=== PATIENT | male | born 1930 | race African-American/Black ===

== ENCOUNTER 2016-08-10 14:15 | Observation (INO) | payer OTHER ==
--- NOTE | 2016-08-10 14:54 | DR.GENAD ---
HPI - PCP Primary Care Physician: ernesto RUTLEDGE Comment HPI Comment: Patient reports pain in his belly since yesterday evening. Patient reports that it has gotten worse today. Patient denies nausea vomiting/diarrhea - Complaint/Symptoms Chief Complaint Doctors Comments: Abdominal pain Chief Complaint:: patient stated that his stomach has been hurting him for a while now but it started hurting really bad today - Nurses notes reviewed Nurses Notes Review: Yes - Source History Provided: Patient - Mode of Arrival Mode of Arrival: Ambulatory - Timing Onset of Chief Complaint: 08/10/16 PMH - PMH Past Medical History: No Past Surgical History: No - Family History History of Family Medical Conditions: No - Social History Type of Tobacco Use: Cigarettes Does any household member use tobacco: No Alcohol Use: None Do you use any recreational Drugs:: No Lives With: Family Lives Where: Home - infectious screening In the last 2 months have you had wt loss of >10#?: NO Have you had fever, night sweats or hemotysis?: No Have you traveled outside the country in the last 6 months?: No Isolation: Standard ROS - Review of Systems Constitutional: No Symptoms Reported Eyes: No Symptoms Reported ENTM: No Symptoms Reported Respiratoy: No Symptoms Reported Cardiovascular: No Symptoms Reported Gastrointestinal/Abdominal: Abdominal Pain Genitourinary: No Symptoms Reported Neurological: No Symptoms Reported Musculoskeletal: No Symptoms Reported Integumentary: No Symptoms Reported Hematologic/Lymphatic: No Symptoms Reported Endocrine: No Symptoms Reported Psychiatric: No Symptoms Reported All Other Systems: Reviewed and Negative PE - Vital Signs Vitals: Pulse Rate 98 Respiratory Rate 20 Blood Pressure 183/92 O2 Sat by Pulse Oximetry 97 - General Limitations: No Limitations General Appearance: Alert, In No Apparent Distress - Head Head Exam: Normal Inspection - Eyes Eye exam: Normal Appearance - ENT ENT Exam: Normal Exam External Ear Exam: Normal External Inspection TM/Canal Exam: Bilateral Normal Nose Exam: Normal Nose Exam Mouth Exam: Normal Inspection Throat Exam: Normal Inspection - Neck Neck Exam: Normal Inspection - Chest Chest Inspection: Normal Inspection - Respiratory Respiratory Exam: Normal Lung Sounds Bilat Respiratory Exam: Bilateral Clear to Auscultation - Cardiovascular Cardiovascular Exam: Regular Rate, Normal Rhythm - Abdominal Exam Abdominal Exam: Normal Inspection, Normal Bowel Sounds, Soft, Tenderness Abdominal Tenderness: Epigastrium - Extremities Extremities Exam: Normal Inspection - Back Back Exam: Normal Inspection - Neurologic Neurological Exam: Alert, Oriented X3 - Psychiatric Psychiatric Exam: Normal Affect, Normal Mood - Skin Skin Exam: Warm, Dry, Intact, Normal Color Course - Reevaluation 1st: Improved - Consultation Consultation Comments: Consulted with Dr Campa- patient accepted for admission ROR - Labs Reviewed Laboratory Results Reviewed?: Yes Result Diagrams: 08/10/16 15:10 08/10/16 15:10 Laboratory: WBC 7.4 X10^3/uL (3.6-10.0) 08/10/16 15:10 RBC 4.07 X10^6/uL (4.7-6.0) L 08/10/16 15:10 Hgb 11.7 g/dL (13.5-18.0) L 08/10/16 15:10 Hct 36.5 % (42.0-54.0) L 08/10/16 15:10 MCV 89.7 fL (80.0-100.0) 08/10/16 15:10 MCH 28.7 pg (27.0-34.0) 08/10/16 15:10 MCHC 32.0 g/dL (33.0-35.0) L 08/10/16 15:10 RDW 14.8 % (11.6-16.5) 08/10/16 15:10 Plt Count 126 X10^3/uL (150.0-450.0) L 08/10/16 15:10 MPV 9.8 fL (7.4-11.0) 08/10/16 15:10 Neut % 86.9 % (42.0-75.0) H 08/10/16 15:10 Lymph % 9.5 % (21.0-51.0) L 08/10/16 15:10 [place] % 3.3 % (0.0-13.0) 08/10/16 15:10 Eos % 0.0 % (0.9-2.9) L 08/10/16 15:10 Baso % 0.3 % (0.2-1.0) 08/10/16 15:10 Neut # 6.4 x10^3/uL (2.2-4.8) H 08/10/16 15:10 Lymph # 0.7 X10^3/uL (1.3-2.9) L 08/10/16 15:10 [place] # 0.2 x10^3/uL (0.3-0.8) L 08/10/16 15:10 Eos # 0.0 x10^3/uL (0.0-0.2) 08/10/16 15:10 Baso # 0.0 X10^3/uL (0.0-0.1) 08/10/16 15:10 Absolute Nucleated RBC 0.0 /100WBC 08/10/16 15:10 Sodium 141 mmol/L (136-145) 08/10/16 15:10 Corrected Sodium 143 mmol/L (136-145) 08/10/16 15:10 Potassium 4.8 mmol/L (3.5-5.1) 08/10/16 15:10 Chloride 107 mmol/L (98-107) 08/10/16 15:10 Carbon Dioxide 21.5 mmol/L (21-32) 08/10/16 15:10 BUN 37 mg/dL (7-18) H 08/10/16 15:10 Creatinine 2.90 mg/dL (0.70-1.30) H 08/10/16 15:10 Est GFR (MDRD) Af Amer 27 (>60) L 08/10/16 15:10 Est GFR (MDRD) Non-Af 22 (>60) L 08/10/16 15:10 Glucose 180 mg/dL (65-99) H 08/10/16 15:10 Calcium 8.2 mg/dL (8.5-10.1) L 08/10/16 15:10 Corrected Calcium 8.8 mg/dL (8.5-10.1) 08/10/16 15:10 Total Bilirubin 1.20 mg/dL (0.2-1.0) H 08/10/16 15:10 AST 18 Units/L (15-37) 08/10/16 15:10 ALT 17 Units/L (12-78) 08/10/16 15:10 Alkaline Phosphatase 94 Units/L (46-116) 08/10/16 15:10 Creatine Kinase 252 Units/L (39-308) 08/10/16 15:10 CK-MB (CK-2) 1.0 ng/mL (0-4.0) 08/10/16 15:10 CK/CKMB % Calc 0.4 % (<4) 08/10/16 15:10 Troponin I 0.02 ng/mL (0-1.5) 08/10/16 15:10 Total Protein 7.2 g/dL (6.4-8.2) 08/10/16 15:10 Albumin 3.2 g/dL (3.4-5.0) L 08/10/16 15:10 Globulin 4.0 g/dL (2.5-4.5) 08/10/16 15:10 Albumin/Globulin Ratio 0.8 Ratio (1.1-2.1) L 08/10/16 15:10 Specimen Type Clean catch urine 08/10/16 18:41 Urine Color Yellow (YELLOW) 08/10/16 18:41 Urine Appearance Clear (CLEAR) 08/10/16 18:41 Urine pH 5.0 (5.0 - 8.0) 08/10/16 18:41 Ur Specific [place] 1.015 (1.000-1.030) 08/10/16 18:41 Urine Protein 4+ (NEGATIVE) 08/10/16 18:41 Urine Glucose (UA) Negative (NEGATIVE) 08/10/16 18:41 Urine Ketones Negative (NEGATIVE) 08/10/16 18:41 Urine Occult Blood 4+ (NEGATIVE) 08/10/16 18:41 Urine Nitrite Negative (NEGATIVE) 08/10/16 18:41 Urine Bilirubin Negative (NEGATIVE) 08/10/16 18:41 Urine Urobilinogen Normal (NORMAL) 08/10/16 18:41 Ur Leukocyte Esterase Negative (NEGATIVE) 08/10/16 18:41 Urine RBC 0 - 4 /HPF (NEGATIVE) 08/10/16 18:41 Urine WBC Rare /HPF (NEGATIVE) 08/10/16 18:41 Ur Squamous Epith Cells Rare /HPF (NEGATIVE) 08/10/16 18:41 Amorphous Sediment 2+ /HPF (NEGATIVE) 08/10/16 18:41 Urine Bacteria Negative /HPF (NEGATIVE) 08/10/16 18:41 Urine Mucus Moderate /HPF (NEGATIVE) 08/10/16 18:41 Ur Culture Indicated? No/not indicated 08/10/16 18:41 H. pylori IgG Antibody Positive (NEGATIVE) A 08/10/16 15:10 reviewed - XRAY XRAY Interpreted by: Radiologist XRAY Findings: normal - Diagnosis Discharge Problem: Abdominal pain in male, Epigastric pain, Helicobacter pylori (H. pylori), Helicobacter pylori duodenitis, Dehydration - Discharge Plan Condition: Stable Prescriptions: Amoxicillin-Clarithromycin W/ [Omeclamox-Jeffrey 500-500-20 mg] 1 mis PO BID 14 Days - Follow ups/Referrals Follow ups/Referrals: NFD,None [Primary Care Provider] - 3 days - Instructions
[2016-08-10] MEDS ORDERED: PROTONIX INJ 40 MG VIAL IVP ONE (15:02)
[2016-08-10] MEDS ORDERED: PROTONIX INJ 40 MG VIAL ONE (15:28)
[2016-08-10 15:32] LABS: BASOPHILS % (AUTO) 0.3 % (0.2-1.0); HEMATOCRIT 36.5 % (42.0-54.0); HEMOGLOBIN 11.7 g/dL (13.5-18.0); LYMPHOCYTES # (AUTO) 0.7 X10^3/uL (1.3-2.9); LYMPHOCYTES % (AUTO) 9.5 % (21.0-51.0); MEAN CORPUSCULAR HEMOGLOBIN 28.7 pg (27.0-34.0); MEAN CORPUSCULAR VOLUME 89.7 fL (80.0-100.0); MEAN PLATELET VOLUME 9.8 fL (7.4-11.0); MONOCYTES # (AUTO) 0.2 x10^3/uL (0.3-0.8); MONOCYTES % (AUTO) 3.3 % (0.0-13.0); NEUTROPHILS # (AUTO) 6.4 x10^3/uL (2.2-4.8); NEUTROPHILS % (AUTO) 86.9 % (42.0-75.0); PLATELET COUNT 126 X10^3/uL (150.0-450.0); RED BLOOD COUNT 4.07 X10^6/uL (4.7-6.0); RED CELL DISTRIBUTION WIDTH 14.8 % (11.6-16.5); WHITE BLOOD COUNT 7.4 X10^3/uL (3.6-10.0)
[2016-08-10 15:37] LABS: ALBUMIN 3.2 g/dL (3.4-5.0); CALCIUM 8.2 mg/dL (8.5-10.1); CARBON DIOXIDE 21.5 mmol/L (21-32); COR CA(FOR HYPOALB) 8.8 mg/dL (8.5-10.1); CREATININE 2.9 mg/dL (0.70-1.30); TOTAL PROTEIN 7.2 g/dL (6.4-8.2)
[2016-08-10] MEDS ORDERED: NS 1000 ML 1,000 ML IV ONE (17:03)
[2016-08-10] MEDS ORDERED: NS 1000 ML 1,000 ML ONE (17:06)
[2016-08-10] MEDS ORDERED: FLAGYL IV PREMIX 500 MG BAG 500 MG/100 ML BAG IV ONE ×2 (18:21→19:04)
--- NOTE | 2016-08-10 18:53 | RAD ---
HISTORY: Abdominal pain, vomiting, diarrhea Study: Acute abdominal series Comparison: None Findings: The trachea is midline. The cardiac silhouette is unremarkable. The lungs are clear without focal mass or consolidation. There is no effusion or pneumothorax. The bony thorax is grossly unremarkab le. Flat plate and upright evaluation of the abdomen demonstrates a nonspecific bowel gas pattern withou t pneumoperitoneum. There are scattered air-fluid levels within the small bowel and colon without s ignificant distention to suggest obstruction. Findings could be seen with gastroenteritis or itis or mild generalized ileus. No pathological soft tissue mass or calcification can be observed. 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 The bony structu res are grossly intact. IMPRESSION: 1. No acute cardiopulmonary disease. 2. Nonspecific bowel gas pattern. Reported By:
[2016-08-10 18:59] LABS: CKMB % 0.4 % (<4); TROPONIN I 0.02 ng/mL (0-1.5)
[2016-08-10] MEDS ORDERED: NS 1000 ML 1,000 ML IV SCH (19:00)
[2016-08-10 19:05] LABS: BILIRUBIN,URINE NEGATIVE (NEGATIVE); BLOOD/HEMOGLOBIN,URINE 4+ (NEGATIVE); GLUCOSE, URINE NEGATIVE (NEGATIVE); KETONES,URINE NEGATIVE (NEGATIVE); LEUKOCYTE ESTERASE ,URINE NEGATIVE (NEGATIVE); NITRITES,URINE NEGATIVE (NEGATIVE); PROTEIN,URINE 4+ (NEGATIVE); UROBILINOGEN,URINE NORMAL (NORMAL)
[2016-08-10 19:12] LABS: COLOR,URINE YELLOW (YELLOW)
[2016-08-10 19:30] LABS: APPEARANCE,URINE CLEAR (CLEAR); BACTERIA,URINE NEGATIVE /HPF (NEGATIVE); RBC,URINE 0 - 4 /HPF (NEGATIVE); SQUAMOUS EPITHELIAL CELL,UR RARE /HPF (NEGATIVE)
[2016-08-10 19:31] LABS: AMORPHOUS SEDIMENT,UR 2+ /HPF (NEGATIVE); MUCUS,URINE MODERATE /HPF (NEGATIVE)
[2016-08-10] MEDS: NS 1000 ML 1,000 ML IV SCH (21:23)
[2016-08-11] MEDS: NS 1000 ML 1,000 ML IV SCH ×6 (03:14→22:10)
[2016-08-11 06:29] LABS: BASOPHILS % (AUTO) 0.2 % (0.2-1.0); HEMATOCRIT 32.7 % (42.0-54.0); HEMOGLOBIN 10.7 g/dL (13.5-18.0); LYMPHOCYTES # (AUTO) 0.6 X10^3/uL (1.3-2.9); LYMPHOCYTES % (AUTO) 4.7 % (21.0-51.0); MEAN CORPUSCULAR HGB CONC 32.8 g/dL (33.0-35.0); MEAN CORPUSCULAR VOLUME 88.5 fL (80.0-100.0); MEAN PLATELET VOLUME 9.9 fL (7.4-11.0); MONOCYTES # (AUTO) 0.6 x10^3/uL (0.3-0.8); MONOCYTES % (AUTO) 4.7 % (0.0-13.0); NEUTROPHILS # (AUTO) 11.3 x10^3/uL (2.2-4.8); NEUTROPHILS % (AUTO) 90.4 % (42.0-75.0); PLATELET COUNT 115 X10^3/uL (150.0-450.0); RED CELL DISTRIBUTION WIDTH 14.7 % (11.6-16.5); WHITE BLOOD COUNT 12.6 X10^3/uL (3.6-10.0)
[2016-08-11 06:41] LABS: ALBUMIN 2.5 g/dL (3.4-5.0); CALCIUM 8.1 mg/dL (8.5-10.1); CARBON DIOXIDE 18.3 mmol/L (21-32); COR CA(FOR HYPOALB) 9.3 mg/dL (8.5-10.1); CREATININE 2.73 mg/dL (0.70-1.30); TOTAL PROTEIN 6.2 g/dL (6.4-8.2)
[2016-08-11 07:23] LABS: BAND NEUTROPHILS % 2 % (0-10)
[2016-08-11 07:24] LABS: PLATELET MORPHOLOGY COMMENT NORMAL (NORMAL)
[2016-08-11] MEDS: PEPCID 20 MG IV PREMIX* 20 MG/50 ML BAG IV SCH (09:31)
[2016-08-11] MEDS: PROTONIX INJ 40 MG VIAL IVP SCH (09:31)
[2016-08-11] MEDS: NORVASC TAB 5 MG PO SCH (11:29)
[2016-08-11] MEDS: PROSCAR PO SCH (11:29)
[2016-08-11] MEDS: HYTRIN PO SCH (11:30)
[2016-08-11] MEDS ORDERED: MORPHINE SULFATE INJ 2 MG IVP PRN (13:26)
[2016-08-11 14:20] LABS: CKMB % 0.7 % (<4); CREATINE KINASE MB 1.7 ng/mL (0-4.0); TROPONIN I 0.06 ng/mL (0-1.5)
--- NOTE | 2016-08-11 15:54 | DR.H&P ---
H&P - History & Physical for Day of: H&P Date: 08/10/16 - Chief Complaint Chief Complaint: ABDOMINAL PAIN - Allergies Allergies/Adverse Reactions: Allergies Allergy/AdvReac Type Severity Reaction Status Date / Time No Known Drug Allergy Allergy Verified 08/10/16 22:00 - History of Present Illness History of Present Illness: THIS IS AN 85 YEAR OLD MALE, WHO IS A PATIENT OF OURS. HE PRESENTS TO THE EMERGENCY ROOM WITH COMPLAINTS OF ABDOMINAL PAIN SINCE LAST EVENING. PATIENT REPORTS WORSENING PAIN. HE DENIES VOMITING OR DIARRHEA. HE REPORTS PAIN IS LOACTED IN THE EPIGASTRIC AREA, AND RATES PAIN AN 8 ON A 1-TO-10 PAIN SCALE. PATIENT REPORTS ASSOCIATED SYMPTOMS OF DECREASED APPETITE AND DECREASED INTAKE, WEAKNESS, AND DISORIENTATION. LABS AND XRAY OBTAINED. CBC WNL EXCEPT: H/H 11.7/36.5, PLT COUNT 126. CMP WNL EXCEPT: BUN/ CREAT 37/2.90, GFR 22, GLUCOSE 180, CALCIUM 8.2, ALBUMIN 3.2. CARDIAC ENZYMES WNL. URINALYSIS WNL. H-PYLORI POSITIVE. ABDOMEN XRAY REPORTS NO ACUTE CARDIOPULMONARY DISEASE; NONSPECIFIC BOWEL GAS PATTERN. EKG: SINUS TACH; RBBB, RATE 109. PATIENT RECEIVED A FLUID BOLUS, FLAGYL, AND PROTONIX IN THE EMERGENCY ROOM. WE WILL ADMIT PATIENT FOR FURTHER TREATMENT OF DEHYDRATION AND ABD PAIN. WE WILL CONTINUE TO MONITOR AND FOLLOW UP IN AM WITH LABS. - Past Medical History Past Medical History: Hypertension Additional Medical History: BPH - Past Surgical History Surgical History: Other Additional Surgical History: Stent due to prostate - Family History Family Medical History: Hypertension - Social History Does patient currently use any type of tobacco product: Yes Have you used tobacco products in the last 12 months: Yes Type of Tobacco Use: Smokeless Does any household member use tobacco: No Alcohol Use: None Drug Use: None - Medications Home Medications: Finasteride [Proscar] 5 mg PO DAILY 08/10/16 [History Confirmed 08/10/16] Terazosin HCl [Hytrin] 5 mg PO DAILY 08/10/16 [History Confirmed 08/10/16] Amlodipine Besylate [NORVASC 5 MG *] 1 tab PO DAILY 08/11/16 [History Confirmed 08/11/16] - Review of Systems Constitutional: Weakness, Malaise Eyes: No Symptoms Reported. denies: Pain, Vision Change, Conjunctivae Inflammation, Eyelid Inflammation, Redness ENT: No Symptoms Reported. denies: Ear Pain, Ear Discharge, Nose Pain, Nose Discharge, Nose Congestion, Mouth Pain, Mouth Swelling, Throat Pain, Throat Swelling Respiratory: No Symptoms Reported. denies: Cough, Shortness of Breath, Hemoptysis, SOB with Excertion, Pleuritic Pain, Sputum, Wheezing Cardiovascular: No Symptoms Reported. denies: Chest Pain, Palpitations, Orthopnea, Paroxysmal Noc. Dyspnea, Edema, Light Headedness Gastrointestinal: Abdominal Pain. denies: Nausea, Vomiting, Diarrhea, Constipation, Melena, Hematochezia Genitourinary: No Symptoms Reported. denies: Dysuria, Frequency, Incontinence, Hematuria, Retention Musculoskeletal: No Symptoms Reported. denies: Shoulder Pain, Arm Pain, Back Pain, Hand Pain, Leg Pain, Foot Pain, Neck Pain Skin: No Symptoms Reported. denies: Rash, Lesions, Jaundice, Bruising, Wound, Ecchymosis Neurological: Confusion. denies: Weakness, Numbness, Incoordination, Change in Speech - Physical Exam Vital Signs: Temperature 98.5 F Pulse Rate [Left Brachial] 82 Respiratory Rate 20 Blood Pressure [Left Arm] 140/89 O2 Sat by Pulse Oximetry 96 Oriented: Person, Place Eyes: Normal. negative: Blurred Vision, Diplopia, Discharge, Pain, Redness, Photophobia Ear: Normal. negative: Swelling, Ecchymosis, Hemotypanum, Abrasion, Laceration Nose: Normal. negative: Injected, Discharge, Blood Throat: Dry. negative: Tonsillar Hypertrophy, Red, Exudate Respiratory: Clear Throughout Cardiovascular: Normal. negative: Murmur, Edema : Normal. negative: Dysuria, Hematuria, Frequency, Discharge, Testicular Pain Auscultation: Bowel Sounds: Decreased. negative: Bruit Palpation: Normal. negative: Spleen Enlarged, Liver Enlarged, Mass Pulsatile Tenderness: Diffuse, Epigastric. negative: Rebound, Guarding, Rigidity Skin: Decreased [place]. negative: Diaphoresis, Wound, Bruising, Ecchymosis Musculoskeletal: Normal Psychiatric: Normal Mood Description: Calm, Appropriate Affect: Normal Speech Pattern: Clear, Appropriate - Assessment/Plan (1) Abdominal pain in male Status: Acute Plan: ADMIT PATIENT, START IV FLUIDS, PROTONIX, MOPRHINE, MONITOR. (2) Dehydration Status: Acute Plan: START IV FLUIDS, MONITOR LABS. (3) Epigastric pain Status: Acute Plan: ABOVE. (4) Helicobacter pylori (H. pylori) Status: Acute Plan: START PROTONIX, MORPHINE, MONITOR. (5) BPH (benign prostatic hypertrophy) Qualifiers: Prostatic enlargement morphology: non-nodular Lower urinary tract symptom presence: symptoms absent Qualified Code(s): N40.0 - Benign prostatic hyperplasia without lower urinary tract symptoms Status: Chronic (6) HTN (hypertension) Qualifiers: Hypertension type: essential hypertension Qualified Code(s): I10 - Essential (primary) hypertension Status: Chronic
--- NOTE | 2016-08-11 16:08 | PCM.PROG ---
Progress Note - Progress Note for Day of Date: 08/11/16 - Subjective Subjective: PATIENT IS REPORTING CHEST PAIN THIS MORNING. PATIENT IS ALERT AND ORIENTED. HE REPORTS MIDSTERNAL CHEST PAIN AND RATES IT AN 8 ON A 1-TO-10 PAIN SCALE. HE STATES THAT PAIN IS INTERMITTENT AND IS SEVERE AT TIMES. PATIENT CONTINUES WITH ABDOMINAL PAIN. CBC WNL EXCEPT: WBC 12.6, H/H 10.7/32.7, PLT COUNT 115. CMP WNL EXCEPT: CHL 111, BUN/CREAT 43/2.73, GFR 29, GLUCOSE 135, CALCIUM 8.1, TOT BILIRUBIN 1.40, TOT PROTEIN 6.2, ALBUMIN 2.5. WE WILL OBTAIN SERIAL EKG'S AND CARDIAC ENZYMES AND MONITOR ON TELEMETRY. WE WILL START PEPCID IV AND FOLLOW UP IN AM WITH LABS. - Past Medical Family Social History Past Med/Fam/Surg Hx: No changes since H&P Allergies: Allergies No Known Drug Allergy Allergy (Verified 08/10/16 22:00) - Review of Systems ROS: No change since H&P - Vital Signs and I&O's Vital Signs: Temperature 98.5 F Pulse Rate [Left Brachial] 82 Respiratory Rate 20 Blood Pressure [Left Arm] 140/89 O2 Sat by Pulse Oximetry 96 Intake and Output: Intake & Output 08/09/16 08/10/16 08/11/16 08/12/16 11:59 11:59 11:59 11:59 Intake Total 1380 Output Total 250 Balance 1130 - Physical Exam Oriented: Normal, Time, Person, Place Eyes: Normal. negative: Blurred Vision, Diplopia, Discharge, Pain, Redness, Photophobia Ear: Normal. negative: Swelling, Ecchymosis, Hemotypanum, Abrasion, Laceration Nose: Normal. negative: Injected, Discharge, Blood Throat: Dry. negative: Tonsillar Hypertrophy, Red, Exudate Respiratory: Normal Cardiovascular: Normal. negative: Murmur, Edema : Normal. negative: Dysuria, Hematuria, Frequency, Discharge, Testicular Pain Auscultation: Bowel Sounds: Decreased. negative: Bruit Palpation: Normal. negative: Spleen Enlarged, Liver Enlarged, Mass Pulsatile Tenderness: Diffuse, Epigastric, Moderate. negative: Rebound, Guarding, Rigidity Skin: Decreased [place]urg[place]. negative: Diaphoresis, Wound, Bruising, Ecchymosis Musculoskeletal: Normal Psychiatric: Normal Mood Description: Calm, Appropriate Affect: Normal Speech Pattern: Clear, Appropriate - Laboratory and Diagnostics Result Diagrams: 08/11/16 06:05 08/11/16 06:05 Labs: Laboratory WBC 12.6 X10^3/uL (3.6-10.0) H 08/11/16 06:05 RBC 3.70 X10^6/uL (4.7-6.0) L 08/11/16 06:05 Hgb 10.7 g/dL (13.5-18.0) L 08/11/16 06:05 Hct 32.7 % (42.0-54.0) L 08/11/16 06:05 MCV 88.5 fL (80.0-100.0) 08/11/16 06:05 MCH 29.0 pg (27.0-34.0) 08/11/16 06:05 MCHC 32.8 g/dL (33.0-35.0) L 08/11/16 06:05 RDW 14.7 % (11.6-16.5) 08/11/16 06:05 Plt Count 115 X10^3/uL (150.0-450.0) L 08/11/16 06:05 Plt Count Comment Adequate (ADEQUATE) 08/11/16 06:05 MPV 9.9 fL (7.4-11.0) 08/11/16 06:05 Neut % 90.4 % (42.0-75.0) H 08/11/16 06:05 Lymph % 4.7 % (21.0-51.0) L 08/11/16 06:05 [place] % 4.7 % (0.0-13.0) 08/11/16 06:05 Eos % 0.0 % (0.9-2.9) L 08/11/16 06:05 Baso % 0.2 % (0.2-1.0) 08/11/16 06:05 Neut # 11.3 x10^3/uL (2.2-4.8) H 08/11/16 06:05 Lymph # 0.6 X10^3/uL (1.3-2.9) L 08/11/16 06:05 [place] # 0.6 x10^3/uL (0.3-0.8) 08/11/16 06:05 Eos # 0.0 x10^3/uL (0.0-0.2) 08/11/16 06:05 Baso # 0.0 X10^3/uL (0.0-0.1) 08/11/16 06:05 Absolute Nucleated RBC 0.0 /100WBC 08/11/16 06:05 Total Counted 100 08/11/16 06:05 Neutrophils % (Manual) 88 % (39-76) H 08/11/16 06:05 Band Neutrophils % 2 % (0-10) 08/11/16 06:05 Lymphocytes % (Manual) 4 % (13-43) L 08/11/16 06:05 Monocytes % (Manual) 7 % (4-9) 08/11/16 06:05 Eosinophils % (Manual) 1 % (0-6) 08/11/16 06:05 Plt Morphology Comment Normal (NORMAL) 08/11/16 06:05 RBC Morphology Normal (NORMAL) 08/11/16 06:05 Sodium 142 mmol/L (136-145) 08/11/16 06:05 Corrected Sodium 143 mmol/L (136-145) 08/11/16 06:05 Potassium 4.9 mmol/L (3.5-5.1) 08/11/16 06:05 Chloride 111 mmol/L (98-107) H 08/11/16 06:05 Carbon Dioxide 18.3 mmol/L (21-32) L 08/11/16 06:05 BUN 43 mg/dL (7-18) H 08/11/16 06:05 Creatinine 2.73 mg/dL (0.70-1.30) H 08/11/16 06:05 Est GFR (MDRD) Af Amer 29 (>60) L 08/11/16 06:05 Est GFR (MDRD) Non-Af 24 (>60) L 08/11/16 06:05 Glucose 135 mg/dL (65-99) H 08/11/16 06:05 Calcium 8.1 mg/dL (8.5-10.1) L 08/11/16 06:05 Corrected Calcium 9.3 mg/dL (8.5-10.1) 08/11/16 06:05 Total Bilirubin 1.40 mg/dL (0.2-1.0) H 08/11/16 06:05 AST 12 Units/L (15-37) L 08/11/16 06:05 ALT 12 Units/L (12-78) 08/11/16 06:05 Alkaline Phosphatase 72 Units/L (46-116) 08/11/16 06:05 Creatine Kinase 258 Units/L (39-308) 08/11/16 13:45 CK-MB (CK-2) 1.7 ng/mL (0-4.0) 08/11/16 13:45 CK/CKMB % Calc 0.7 % (<4) 08/11/16 13:45 Troponin I 0.06 ng/mL (0-1.5) 08/11/16 13:45 Total Protein 6.2 g/dL (6.4-8.2) L 08/11/16 06:05 Albumin 2.5 g/dL (3.4-5.0) L 08/11/16 06:05 Globulin 3.7 g/dL (2.5-4.5) 08/11/16 06:05 Albumin/Globulin Ratio 0.7 Ratio (1.1-2.1) L 08/11/16 06:05 Specimen Type Clean catch urine 08/10/16 18:41 Urine Color Yellow (YELLOW) 08/10/16 18:41 Urine Appearance Clear (CLEAR) 08/10/16 18:41 Urine pH 5.0 (5.0 - 8.0) 08/10/16 18:41 Ur Specific [place] 1.015 (1.000-1.030) 08/10/16 18:41 Urine Protein 4+ (NEGATIVE) 08/10/16 18:41 Urine Glucose (UA) Negative (NEGATIVE) 08/10/16 18:41 Urine Ketones Negative (NEGATIVE) 08/10/16 18:41 Urine Occult Blood 4+ (NEGATIVE) 08/10/16 18:41 Urine Nitrite Negative (NEGATIVE) 08/10/16 18:41 Urine Bilirubin Negative (NEGATIVE) 08/10/16 18:41 Urine Urobilinogen Normal (NORMAL) 08/10/16 18:41 Ur Leukocyte Esterase Negative (NEGATIVE) 08/10/16 18:41 Urine RBC 0 - 4 /HPF (NEGATIVE) 08/10/16 18:41 Urine WBC Rare /HPF (NEGATIVE) 08/10/16 18:41 Ur Squamous Epith Cells Rare /HPF (NEGATIVE) 08/10/16 18:41 Amorphous Sediment 2+ /HPF (NEGATIVE) 08/10/16 18:41 Urine Bacteria Negative /HPF (NEGATIVE) 08/10/16 18:41 Urine Mucus Moderate /HPF (NEGATIVE) 08/10/16 18:41 Ur Culture Indicated? No/not indicated 08/10/16 18:41 H. pylori IgG Antibody Positive (NEGATIVE) A 08/10/16 15:10 - Plan (1) Abdominal pain in male Status: Acute Plan: CONTINUE IV FLUIDS, PROTONIX, MOPRHINE, MONITOR. (2) Dehydration Status: Acute Plan: CONTINUE IV FLUIDS, MONITOR LABS. (3) Epigastric pain Status: Acute Plan: ABOVE. (4) Helicobacter pylori (H. pylori) Status: Acute Plan: CONTINUE PROTONIX, MORPHINE, MONITOR. (5) BPH (benign prostatic hypertrophy) Status: Chronic Qualifiers: Prostatic enlargement morphology: non-nodular Lower urinary tract symptom presence: symptoms absent Qualified Code(s): N40.0 - Benign prostatic hyperplasia without lower urinary tract symptoms (6) HTN (hypertension) Status: Chronic Qualifiers: Hypertension type: essential hypertension Qualified Code(s): I10 - Essential (primary) hypertension
[2016-08-11 18:09] LABS: CKMB % 0.9 % (<4); CREATINE KINASE MB 2.4 ng/mL (0-4.0); TROPONIN I 0.07 ng/mL (0-1.5)
[2016-08-11 20:13] VITALS: BMI 22.1
[2016-08-11 21:48] LABS: CKMB % 0.8 % (<4); CREATINE KINASE MB 2.6 ng/mL (0-4.0); TROPONIN I 0.07 ng/mL (0-1.5)
[2016-08-12] MEDS: NS 1000 ML 1,000 ML IV SCH ×2 (02:20→05:09)
[2016-08-12 06:15] LABS: BASOPHILS % (AUTO) 0.2 % (0.2-1.0); HEMATOCRIT 31.7 % (42.0-54.0); HEMOGLOBIN 10.5 g/dL (13.5-18.0); LYMPHOCYTES # (AUTO) 0.5 X10^3/uL (1.3-2.9); LYMPHOCYTES % (AUTO) 4.6 % (21.0-51.0); MEAN CORPUSCULAR HEMOGLOBIN 29.1 pg (27.0-34.0); MEAN CORPUSCULAR VOLUME 88.1 fL (80.0-100.0); MEAN PLATELET VOLUME 10.3 fL (7.4-11.0); MONOCYTES # (AUTO) 0.6 x10^3/uL (0.3-0.8); MONOCYTES % (AUTO) 6.2 % (0.0-13.0); NEUTROPHILS # (AUTO) 9.3 x10^3/uL (2.2-4.8); PLATELET COUNT 114 X10^3/uL (150.0-450.0); RED CELL DISTRIBUTION WIDTH 14.7 % (11.6-16.5); WHITE BLOOD COUNT 10.4 X10^3/uL (3.6-10.0)
--- NOTE | 2016-08-12 06:26 | RAD ---
HISTORY: Dehydration Study: Chest one view Comparison: August 10, 2016 Findings: Positioning is less than optimal with the left costophrenic angle not included on the image. The hea rt is enlarged. No congestive heart failure is noted. No acute alveolar infiltrates are identified. No definite pleural effusions are identified. The bony thorax is unremarkable. IMPRESSION: Cardiomegaly without congestive heart failure Lungs clear Reported By:
[2016-08-12 06:31] LABS: ALBUMIN 2.3 g/dL (3.4-5.0); COR CA(FOR HYPOALB) 9.4 mg/dL (8.5-10.1); CREATININE 2.69 mg/dL (0.70-1.30); TOTAL PROTEIN 5.9 g/dL (6.4-8.2)
[2016-08-12] MEDS: PEPCID 20 MG IV PREMIX* 20 MG/50 ML BAG IV SCH (08:09)
[2016-08-12] MEDS: NORVASC TAB 5 MG PO SCH (08:10)
[2016-08-12] MEDS: PROTONIX INJ 40 MG VIAL IVP SCH (08:10)
[2016-08-12] MEDS: HYTRIN PO SCH (08:11)
[2016-08-12] MEDS: PROSCAR PO SCH (08:11)
[2016-08-12 08:40] VITALS: BP 162/83
[2016-08-12] MEDS ORDERED: ALBUMIN HUMAN 25%- 100ML 100 ML IV SCH (09:00)
--- NOTE | 2016-08-12 10:30 | DR.CARTERD ---
- Discharge Summary for: Discharge Summary for Date of:: 08/12/16 - Admission Date Date of Admission: 08/10/16 - Admission Diagnoses Admission Diagnosis: (1) Abdominal pain in male (2) Dehydration (3) Epigastric pain (4) Helicobacter pylori (H. pylori) (5) BPH (benign prostatic hypertrophy) (6) HTN (hypertension) - Discharge Date Discharge Date: 08/12/16 - Discharge Diagnoses Discharge Diagnosis: (1) Chest Pain (2)Abdominal pain in male (3) Dehydration (4) Epigastric pain (5) Helicobacter pylori (H. pylori) (6) BPH (benign prostatic hypertrophy) (7) HTN (hypertension) - Hospital Course Hospital Course: DAY ONE OF HOSPITAL STAY, THIS 85 YEAR OLD MALE, IS A PATIENT OF OURS. HE PRESENTED TO THE EMERGENCY ROOM WITH COMPLAINTS OF ABDOMINAL PAIN SINCE ONE DAY PRIOR. PATIENT REPORTED WORSENING PAIN. HE DENIED VOMITING OR DIARRHEA. HE REPORTED PAIN WAS LOACTED IN THE EPIGASTRIC AREA, AND RATED PAIN AN 8 ON A 1-TO- 10 PAIN SCALE. PATIENT REPORTED ASSOCIATED SYMPTOMS OF DECREASED APPETITE AND DECREASED INTAKE, WEAKNESS, AND DISORIENTATION. LABS AND XRAY OBTAINED. CBC WNL EXCEPT: H/H 11.7/36.5, PLT COUNT 126. CMP WNL EXCEPT: BUN/CREAT 37/2.90, GFR 22, GLUCOSE 180, CALCIUM 8.2, ALBUMIN 3.2. CARDIAC ENZYMES WNL. URINALYSIS WNL. H-PYLORI POSITIVE. ABDOMEN XRAY REPORTED NO ACUTE CARDIOPULMONARY DISEASE; NONSPECIFIC BOWEL GAS PATTERN. EKG: SINUS TACH; RBBB, RATE 109. PATIENT RECEIVED A FLUID BOLUS, FLAGYL, AND PROTONIX IN THE EMERGENCY ROOM. WE ADMITTED PATIENT FOR FURTHER TREATMENT OF DEHYDRATION AND ABD PAIN. DAY TWO OF HOSPITAL STAY, PATIENT REPORTED CHEST PAIN. PATIENT WAS ALERT AND ORIENTED. HE REPORTED MIDSTERNAL CHEST PAIN AND RATED IT AN 8 ON A 1-TO-10 PAIN SCALE. HE STATED THAT PAIN WAS INTERMITTENT AND WAS SEVERE AT TIMES. PATIENT CONTINUED WITH ABDOMINAL PAIN. CBC WNL EXCEPT: WBC 12.6, H/H 10.7/32.7 , PLT COUNT 115. CMP WNL EXCEPT: CHL 111, BUN/CREAT 43/2.73, GFR 29, GLUCOSE 135, CALCIUM 8.1, TOT BILIRUBIN 1.40, TOT PROTEIN 6.2, ALBUMIN 2.5. WE OBTAINED SERIAL EKG'S AND CARDIAC ENZYMES AND MONITORED ON TELEMETRY. WE STARTED PEPCID IV AND MONITORED. DAY THREE OF HOSPITAL STAY, PATIENT REPORTED HE WAS FEELING MUCH BETTER WITH NO CHEST PAIN. HE DENIED NAUSEA, VOMITING, ABDOMINAL PAIN. CARDIAC ENZYMES WNL WELL EKG'S. CBC WNL EXCEPT: WBC 10.4, H/H 10.5/31.7, PLT COUNT 114. CMP WNL EXCEPT: CHL 112, BUN/CREAT47/2.69, GFR 29, GLUCOSE 119, CALCIUM 8.0, TOT PROTEIN 5.9, ALBUMIN 2.3. WE PLANNED FOR DISCHARGE. PATIENT RECEIVED ALBUMIN PRIOR TO DISCHARGE. INSTRUCTIONS FOR MEDICATIONS AND FOLLOW UP WERE GIVEN TO PATIENT AND FAMILY, BOTH VOICED UNDERSTANDING. PATIENT IS BEING DISCHARGED HOME ON PEPCID, PROTONIX, AND GI COCKTAIL FOR H-PYLORI INFECTION. PATIENT WAS DISCHARGED HOME IN STABLE CONDITION WITH FAMILY. - Discharge Medications Discharge Medications: Finasteride [PROSCAR 5 MG *] 5 mg PO DAILY 08/10/16 [History] Terazosin HCl [HYTRIN 5 MG (GENERIC) *] 5 mg PO DAILY 08/10/16 [History] Amlodipine Besylate [NORVASC 5 MG *] 1 tab PO DAILY 08/11/16 [History] Famotidine [Pepcid Tab 20 mg] 20 mg PO BID #60 tab 08/12/16 [Rx] Gi Cocktail [LEVSIN/Maalox/Lidoc Visc (GI COCKTAIL) *] 10 ml PO QID #240 ml [Rx] Pantoprazole Sodium 40 mg [Protonix Tab 40 mg] 40 mg PO BID #60 tab 08/12/16 [Rx ] - Discharge Disposition Discharge Disposition: PATIENT IS TO FOLLOW UP IN OUR OFFICE IN ONE WEEK.
== END 2016-08-12 11:10 | disposition home or self-care (01) ==
LOC: ER 14:15 → OBS 20:12
PROVIDERS: ADMIT Internal Medicine; ATTEND Internal Medicine
DX: R10.84 Generalized abdominal pain (principal); E86.0 Dehydration; R10.13 Epigastric pain; B96.81 Helicobacter pylori [H. pylori] as the cause of diseases classified elsewhere; K29.80 Duodenitis without bleeding; R94.31 Abnormal electrocardiogram [ECG] [EKG]; R63.0 Anorexia; R53.1 Weakness; I10 Essential (primary) hypertension; N40.0 Benign prostatic hyperplasia without lower urinary tract symptoms; R07.2 Precordial pain; D64.89 Other specified anemias; R26.89 Other abnormalities of gait and mobility; R41.0 Disorientation, unspecified; Z79.899 Other long term (current) drug therapy
CPT/HCPCS: 36415; 71010; 74022; 80053; 81001; 82550; 82553; 84484; 85025; 86677; 93005; 93010; 94760; 96365; 96367; 96374; 96375; 97535; 99284; A4222; C9113; G8978; G8979; G8987; G8988; P9047; S0028; S0030; S0138; G0378

== ENCOUNTER 2016-09-02 16:24 | Observation (INO) | payer OTHER ==
--- NOTE | 2016-09-02 16:38 | DR.DIZZY ---
HPI - Time seen Time seen: 16:30 - PCP Primary Care Physician: ISIAH - HPI Comment HPI Comment: PATIENT GOT WORSE TODAY. HE WAS ATAXIC AND DIZZY. SLIGHT HEADACHE. NO FEVER. FEQUENT FALLING AND HITTING HEAD. PATIENT SAID HIS HEAD DONT FEEL RIGHT. - Complaint Chief Complaint Doctor Comments: GENERALIZE WEAKNESS, CONFUSION, ATAXIA AND FREQUENT FALL TIMES FEW DAYS. Chief Complaint:: PT. C/O UNSTEADY GAIT AND DIZZINESS. UPON ARRIVAL TO ER, PT. HAS AMS. - Nurses Notes Reviewed Nurses Notes Review: Yes - Source History Provided: Patient, EMS - Mode of Arrival Mode of Arrival: EMS - Timing Onset of Chief Complaint: 08/19/16 Came on: Gradually Symptom Onset: Unknown - Duration Duration: Constant Duration: Days - Location of Weakness Weakness Location: Generalized - Context Onset: With light exertion Does pt take pot. toxic medication?: No History of: None Stroke Symptoms: Ataxia, Acute confusion - Severity Severity: Abnormal activity level - Associated signs and symptoms Associated Signs and Symptoms: Vertigo, Weak PMH - PMH Past Medical History: Yes Past Medical History: Hypertension Past Medical History Comment: PROSTATE CANCER Past Surgical History: Yes Surgical History: Other - Family History History of Family Medical Conditions: Yes Family Medical History: Hypertension - Social History Does patient currently use any type of tobacco product: No Have you used tobacco products in the last 12 months: No Type of Tobacco Use: None Does any household member use tobacco: No Alcohol Use: None Do you use any recreational Drugs:: No Lives With: Family Lives Where: Home - infectious screening In the last 2 months have you had wt loss of >10#?: NO Have you had fever, night sweats or hemotysis?: No Have you traveled outside the country in the last 6 months?: No Isolation: Standard ROS - Review of Systems Constitutional: Weakness, Fatigue. negative: Chills, Fever Eyes: No Symptoms Reported. negative: Eye Pain, Discharge ENTM: Hearing Loss (DECREASE HEARING). negative: Ear Pain, Nose Discharge, Nose Congestion, Throat Pain Respiratoy: Non-Productive Cough. negative: Short of Breath, Wheezing, Hemoptysis Cardiovascular: negative: Chest Pain, Edema, Palpitations, Syncope Gastrointestinal/Abdominal: negative: Abdominal Pain, Diarrhea, Nausea, Vomiting Genitourinary: negative: Dysuria, Hematuria Neurological: Headache, Weakness, Dizziness Musculoskeletal: Muscle Pain Integumentary: No Symptoms Reported Hematologic/Lymphatic: Easy Bruising Endocrine: No Symptoms Reported All Other Systems: Reviewed and Negative Unable to Obtain Due To: Altered mental status PE - Vital Signs Vitals: Temperature 100 F Pulse Rate 81 Respiratory Rate 16 Blood Pressure [Left Arm] 162/83 Blood Pressure 126/61 O2 Sat by Pulse Oximetry 97 - General Limitations: No Limitations General Appearance: Alert - Head Head Exam: Normal Inspection - Eyes Eye exam: Normal Appearance Pupils: Regular, Round: Bilateral, Reactive: Bilateral Sclera/Conjunctival: Normal Inspection: Bilateral - ENT ENT Exam: Normal Oropharynx, Normal External Ear Exam, TM's Normal Bilaterally - Neck Neck Exam: Trachea Midline. negative: Tenderness, Meningismus, Lymphadenopathy - Chest Chest Inspection: Symmetric Chest Wall Rise - Respiratory Respiratory Exam: Normal Lung Sounds Bilat Respiratory Exam: Bilateral Clear to Auscultation - Cardiovascular Cardiovascular Exam: Regular Rate, Normal Rhythm, Normal Heart Sounds - Abdominal Exam Abdominal Exam: Normal Bowel Sounds, Soft. negative: Tenderness - Rectal Rectal Exam: Deferred - Extremeties Extremities Exam: Normal Inspection - Back Back Exam: Normal Inspection - Neurologic Neurological Exam: Alert. negative: Normal Gait (ATAXIA) Speech: Fluid Speech Cranial Nerve Exam: Facial Sensation (V): Normal, Facial Palsy (VII): Normal, Gag reflex (XI): Normal, Tongue Deviation: Normal Cerebellar Function: Ataxic Gait Motor Strength - LUE: 5/5 Motor Strength - RUE: 5/5 Motor Strength - LLE: 5/5 Motor Strength - RLE: 5/5 Upper Motor Neuron Exam: Babinski Sign: Normal - Psychiatric Psychiatric Exam: Anxious - Skin Skin Exam: Normal Color MDM - Additional Information Additional Information Obtained From: Family - Differential Diagnosis Differential Diagnosis: CVA, Dehydration, Dysrhythmia, Electrolyte disorder, Hypoglycemia, Labyrinthitis, TIA, VBI, Vertigo- central Course - Treatment Treatment: SEE ORDERS - Consultation Consultation Comments: DISCUSS PATIENT WITH DR. STRAUSS. HE WILL ADMIT PATIENT. - Education/Counseling Education/Counseling: Patient, Family, Education Educated On: Diagnosis, Needs for Follow Up ROR - Labs Reviewed Laboratory Results Reviewed?: Yes Result Diagrams: 09/03/16 05:41 09/03/16 05:41 Laboratory: WBC 4.4 X10^3/uL (3.6-10.0) 09/03/16 05:41 RBC 3.31 X10^6/uL (4.7-6.0) L 09/03/16 05:41 Hgb 9.4 g/dL (13.5-18.0) L 09/03/16 05:41 Hct 28.3 % (42.0-54.0) L 09/03/16 05:41 MCV 85.7 fL (80.0-100.0) 09/03/16 05:41 MCH 28.5 pg (27.0-34.0) 09/03/16 05:41 MCHC 33.3 g/dL (33.0-35.0) 09/03/16 05:41 RDW 15.1 % (11.6-16.5) 09/03/16 05:41 Plt Count 165 X10^3/uL (150.0-450.0) 09/03/16 05:41 MPV 8.3 fL (7.4-11.0) 09/03/16 05:41 Neut % 65.4 % (42.0-75.0) 09/03/16 05:41 Lymph % 20.0 % (21.0-51.0) L 09/03/16 05:41 [place] % 9.1 % (0.0-13.0) 09/03/16 05:41 Eos % 2.7 % (0.9-2.9) 09/03/16 05:41 Baso % 2.8 % (0.2-1.0) H 09/03/16 05:41 Neut # 2.9 x10^3/uL (2.2-4.8) 09/03/16 05:41 Lymph # 0.9 X10^3/uL (1.3-2.9) L 09/03/16 05:41 [place] # 0.4 x10^3/uL (0.3-0.8) 09/03/16 05:41 Eos # 0.1 x10^3/uL (0.0-0.2) 09/03/16 05:41 Baso # 0.1 X10^3/uL (0.0-0.1) 09/03/16 05:41 Absolute Nucleated RBC 0.0 /100WBC 09/03/16 05:41 Sodium 139 mmol/L (136-145) 09/03/16 05:41 Corrected Sodium TNP 09/03/16 05:41 Potassium 5.0 mmol/L (3.5-5.1) 09/03/16 05:41 Chloride 108 mmol/L (98-107) H 09/03/16 05:41 Carbon Dioxide 21.3 mmol/L (21-32) 09/03/16 05:41 BUN 33 mg/dL (7-18) H 09/03/16 05:41 Creatinine 2.95 mg/dL (0.70-1.30) H 09/03/16 05:41 Est GFR (MDRD) Af Amer 26 (>60) L 09/03/16 05:41 Est GFR (MDRD) Non-Af 22 (>60) L 09/03/16 05:41 Glucose 88 mg/dL (65-99) 09/03/16 05:41 Calcium 7.5 mg/dL (8.5-10.1) L 09/03/16 05:41 Corrected Calcium 9.0 mg/dL (8.5-10.1) 09/03/16 05:41 Total Bilirubin 0.50 mg/dL (0.2-1.0) 09/03/16 05:41 AST 20 Units/L (15-37) 09/03/16 05:41 ALT 14 Units/L (12-78) 09/03/16 05:41 Alkaline Phosphatase 65 Units/L (46-116) 09/03/16 05:41 Creatine Kinase 329 Units/L (39-308) H 09/03/16 05:41 CK-MB (CK-2) 7.3 ng/mL (0-4.0) H* 09/03/16 05:41 CK/CKMB % Calc 2.2 % (<4) 09/03/16 05:41 Troponin I 0.02 ng/mL (0-1.5) 09/03/16 05:41 Total Protein 5.8 g/dL (6.4-8.2) L 09/03/16 05:41 Albumin 2.1 g/dL (3.4-5.0) L 09/03/16 05:41 Globulin 3.7 g/dL (2.5-4.5) 09/03/16 05:41 Albumin/Globulin Ratio 0.6 Ratio (1.1-2.1) L 09/03/16 05:41 Triglycerides 69 mg/dL (0-150) 09/03/16 05:41 Cholesterol 120 mg/dL (0-200) 09/03/16 05:41 LDL Cholesterol, Calc 71 mg/dL (0-100) 09/03/16 05:41 HDL Cholesterol 35 mg/dL (40-60) L 09/03/16 05:41 Cholesterol/HDL Ratio 3.4 (0.0-5.0) 09/03/16 05:41 Specimen Type Clean catch urine 09/02/16 17:21 Urine Color Yellow (YELLOW) 09/02/16 17:21 Urine Appearance Slightly hazy (CLEAR) 09/02/16 17:21 Urine pH 5.0 (5.0 - 8.0) 09/02/16 17:21 Ur Specific [place] 1.015 (1.000-1.030) 09/02/16 17:21 Urine Protein 3+ (NEGATIVE) 09/02/16 17:21 Urine Glucose (UA) Negative (NEGATIVE) 09/02/16 17:21 Urine Ketones Negative (NEGATIVE) 09/02/16 17:21 Urine Occult Blood 3+ (NEGATIVE) 09/02/16 17:21 Urine Nitrite Negative (NEGATIVE) 09/02/16 17:21 Urine Bilirubin Negative (NEGATIVE) 09/02/16 17:21 Urine Urobilinogen Normal (NORMAL) 09/02/16 17:21 Ur Leukocyte Esterase 1+ (NEGATIVE) 09/02/16 17:21 Urine RBC 3-5 /HPF (NEGATIVE) 09/02/16 17:21 Urine WBC 0-3 /HPF (NEGATIVE) 09/02/16 17:21 Ur Squamous Epith Cells Few /HPF (NEGATIVE) 09/02/16 17:21 Ur Renal Epithelial Cell Few /HPF (NEGATIVE) 09/02/16 17:21 Amorphous Sediment Trace /HPF (NEGATIVE) 09/02/16 17:21 Urine Bacteria Trace /HPF (NEGATIVE) 09/02/16 17:21 Granular Casts Few /LPF (NEGATIVE) 09/02/16 17:21 Ur Culture Indicated? No/not indicated 09/02/16 17:21 - XRAY XRAY Interpreted by: Radiologist XRAY Findings: REPORT DISCUSS WITH PATIENT AND FAMILY. - EKG Rhythm: NSR (EKG NOTED.) - Diagnosis Discharge Problem: Weakness generalized, Ataxia, Dehydration, Frequent falls Altered mental status Qualifiers: Altered mental status type: transient alteration of awareness Qualified Code(s) : R40.4 - Transient alteration of awareness - Discharge Plan Disposition: ADMITTED INPATIENT Condition: Stable - Follow ups/Referrals - Instructions
[2016-09-02 17:08] LABS: BASOPHILS % (AUTO) 0.8 % (0.2-1.0); EOSINOPHILS # (AUTO) 0.1 x10^3/uL (0.0-0.2); EOSINOPHILS % (AUTO) 1.8 % (0.9-2.9); HEMATOCRIT 30.3 % (42.0-54.0); LYMPHOCYTES # (AUTO) 0.8 X10^3/uL (1.3-2.9); LYMPHOCYTES % (AUTO) 16.7 % (21.0-51.0); MEAN CORPUSCULAR HEMOGLOBIN 28.4 pg (27.0-34.0); MEAN CORPUSCULAR HGB CONC 32.9 g/dL (33.0-35.0); MEAN CORPUSCULAR VOLUME 86.3 fL (80.0-100.0); MEAN PLATELET VOLUME 8.4 fL (7.4-11.0); MONOCYTES # (AUTO) 0.4 x10^3/uL (0.3-0.8); MONOCYTES % (AUTO) 9.4 % (0.0-13.0); NEUTROPHILS # (AUTO) 3.3 x10^3/uL (2.2-4.8); NEUTROPHILS % (AUTO) 71.3 % (42.0-75.0); PLATELET COUNT 190 X10^3/uL (150.0-450.0); RED BLOOD COUNT 3.51 X10^6/uL (4.7-6.0); RED CELL DISTRIBUTION WIDTH 15.3 % (11.6-16.5); WHITE BLOOD COUNT 4.6 X10^3/uL (3.6-10.0)
[2016-09-02 17:17] LABS: BLOOD UREA NITROGEN 33 mg/dL (7-18); CALCIUM 7.6 mg/dL (8.5-10.1); CARBON DIOXIDE 22.3 mmol/L (21-32); CHLORIDE 108 mmol/L (98-107); CREATININE 3.26 mg/dL (0.70-1.30); GLUCOSE 79 mg/dL (65-99); SODIUM 138 mmol/L (136-145); TROPONIN I 0.03 ng/mL (0-1.5); eGFR BLACK RACES 23 (>60); eGFR NON BLACK RACES 19 (>60)
--- NOTE | 2016-09-02 17:26 | CT ---
HISTORY: Altered mental status Study: CT brain without contrast Comparison: None Technique: Multiple axial images of the brain were obtained from the skull base to the vertex without administr ation of IV contrast. Coronal and sagittal reformats were performed. Dose reduction procedures were used with MA/kv adjusted for body size. Findings: No acute intraparenchymal hemorrhage or mass can be identified. No extra-axial fluid collections ar e seen. No alteration in the attenuation of the brain parenchyma can be identified to suggest acute or subacute ischemic change. the ventricles, cortical sulci, and other CSF spaces are mildly enlar ged consistent with generalized atrophy. There is decreased attenuation in the periventricular white matter suggestive of small vessel vascular disease. The extracranial structures are grossly unrema rkable. IMPRESSION: 1. No acute intracranial process can be identified. 2. Age-related atrophy 3. Small-vessel disease Reported By:
[2016-09-02 17:40] LABS: ALANINE AMINOTRANSFERASE 14 Units/L (12-78); ALBUMIN 2.4 g/dL (3.4-5.0); ALKALINE PHOSPHATASE 70 Units/L (46-116); ASPARTATE AMINO TRANSFERASE 20 Units/L (15-37); CKMB % 1.9 % (<4); COR CA(FOR HYPOALB) 8.9 mg/dL (8.5-10.1); CREATINE KINASE 351 Units/L (39-308); TOTAL PROTEIN 6.5 g/dL (6.4-8.2)
[2016-09-02 17:41] LABS: CREATINE KINASE MB 6.7 ng/mL (0-4.0)
[2016-09-02 17:44] LABS: BILIRUBIN,URINE NEGATIVE (NEGATIVE); BLOOD/HEMOGLOBIN,URINE 3+ (NEGATIVE); GLUCOSE, URINE NEGATIVE (NEGATIVE); KETONES,URINE NEGATIVE (NEGATIVE); LEUKOCYTE ESTERASE ,URINE 1+ (NEGATIVE); NITRITES,URINE NEGATIVE (NEGATIVE); PROTEIN,URINE 3+ (NEGATIVE); UROBILINOGEN,URINE NORMAL (NORMAL)
[2016-09-02 18:03] LABS: COLOR,URINE YELLOW (YELLOW)
[2016-09-02 18:04] LABS: AMORPHOUS SEDIMENT,UR TRACE /HPF (NEGATIVE); APPEARANCE,URINE SLIGHTLY HAZY (CLEAR); BACTERIA,URINE TRACE /HPF (NEGATIVE); SQUAMOUS EPITHELIAL CELL,UR FEW /HPF (NEGATIVE)
[2016-09-02 18:05] LABS: GRANULAR CASTS,URINE FEW /LPF (NEGATIVE); RENAL EPITHELIAL CELLS,URINE FEW /HPF (NEGATIVE)
--- NOTE | 2016-09-02 18:33 | RAD ---
HISTORY: Cough Study: AP chest Comparison: August 12, 2016 Findings: The trachea is midline. The cardiac silhouette is unremarkable. The lungs are clear without focal infiltrate or effusion. The bony thorax is unremarkable. IMPRESSION: 1. No acute cardiopulmonary disease. Reported By:
[2016-09-02] MEDS ORDERED: HYTRIN PO SCH (21:00)
[2016-09-02] MEDS: PROTONIX TAB 40 MG PO SCH (22:12)
[2016-09-02] MEDS: PEPCID TAB 20 MG PO SCH (22:12)
[2016-09-02] MEDS: NS 1000 ML 1,000 ML IV SCH (22:12)
[2016-09-02 22:42] VITALS: BMI 19.2
[2016-09-02 23:58] LABS: CKMB % 2.1 % (<4); TROPONIN I 0.02 ng/mL (0-1.5)
[2016-09-03 00:01] LABS: CREATINE KINASE MB 7.5 ng/mL (0-4.0)
[2016-09-03 06:48] LABS: BASOPHILS # (AUTO) 0.1 X10^3/uL (0.0-0.1); BASOPHILS % (AUTO) 2.8 % (0.2-1.0); EOSINOPHILS # (AUTO) 0.1 x10^3/uL (0.0-0.2); EOSINOPHILS % (AUTO) 2.7 % (0.9-2.9); HEMATOCRIT 28.3 % (42.0-54.0); HEMOGLOBIN 9.4 g/dL (13.5-18.0); LYMPHOCYTES # (AUTO) 0.9 X10^3/uL (1.3-2.9); MEAN CORPUSCULAR HEMOGLOBIN 28.5 pg (27.0-34.0); MEAN CORPUSCULAR HGB CONC 33.3 g/dL (33.0-35.0); MEAN CORPUSCULAR VOLUME 85.7 fL (80.0-100.0); MEAN PLATELET VOLUME 8.3 fL (7.4-11.0); MONOCYTES # (AUTO) 0.4 x10^3/uL (0.3-0.8); MONOCYTES % (AUTO) 9.1 % (0.0-13.0); NEUTROPHILS # (AUTO) 2.9 x10^3/uL (2.2-4.8); NEUTROPHILS % (AUTO) 65.4 % (42.0-75.0); PLATELET COUNT 165 X10^3/uL (150.0-450.0); RED BLOOD COUNT 3.31 X10^6/uL (4.7-6.0); RED CELL DISTRIBUTION WIDTH 15.1 % (11.6-16.5); WHITE BLOOD COUNT 4.4 X10^3/uL (3.6-10.0)
[2016-09-03 07:03] LABS: ALANINE AMINOTRANSFERASE 14 Units/L (12-78); ALBUMIN 2.1 g/dL (3.4-5.0); ALKALINE PHOSPHATASE 65 Units/L (46-116); ASPARTATE AMINO TRANSFERASE 20 Units/L (15-37); BLOOD UREA NITROGEN 33 mg/dL (7-18); CALCIUM 7.5 mg/dL (8.5-10.1); CARBON DIOXIDE 21.3 mmol/L (21-32); CHLORIDE 108 mmol/L (98-107); CHOL/HDL RATIO 3.4 (0.0-5.0); CHOLESTEROL 120 mg/dL (0-200); CREATININE 2.95 mg/dL (0.70-1.30); GLUCOSE 88 mg/dL (65-99); HDL CHOLESTEROL 35 mg/dL (40-60); SODIUM 139 mmol/L (136-145); TOTAL PROTEIN 5.8 g/dL (6.4-8.2); TRIGLYCERIDES 69 mg/dL (0-150); eGFR BLACK RACES 26 (>60); eGFR NON BLACK RACES 22 (>60)
[2016-09-03 08:00] LABS: CKMB % 2.2 % (<4); TROPONIN I 0.02 ng/mL (0-1.5)
[2016-09-03 08:04] LABS: CREATINE KINASE MB 7.3 ng/mL (0-4.0)
[2016-09-03] MEDS: NORVASC TAB 5 MG PO SCH (09:03)
[2016-09-03] MEDS: PEPCID TAB 20 MG PO SCH ×2 (09:03→21:08)
[2016-09-03] MEDS: PROSCAR PO SCH (09:03)
[2016-09-03] MEDS: PROTONIX TAB 40 MG PO SCH ×2 (09:03→21:08)
[2016-09-03] MEDS: ALBUMIN HUMAN 25%- 100ML 100 ML IV SCH (09:05)
[2016-09-03] MEDS: NS 1000 ML 1,000 ML IV SCH ×2 (09:05→21:08)
--- NOTE | 2016-09-03 12:14 | MRI ---
HISTORY: Altered mental status, ataxia, dizziness Study: MRI Brain without contrast Comparison: CT head same day Technique: Multiplanar multi-sequence MRI of the brain was obtained utilizing standard departmental protocol. Sagittal and axial T1 weighted images were obtained. Axial T2 and flair weighted images were performed as well. Axial diffusion weighted and ADC trace mapping was performed. Findings: There is mild to moderate T2 and FLAIR weighted hyperintense signal in the subcortical and periventr icular white matter, likely reflecting chronic microvascular ischemic changes. There is mild to mode rate cerebral volume loss. Diffusion weighted imaging does not demonstrate abnormal signal character istics to suggest acute ischemic change.No extra-axial fluid collections are observed. The ventricu lar system appears symmetric and nondilated. The cerebellopontine angles are normal in appearance wi thout brainstem mass or evidence for acoustic neuroma. The flow voids on T2 weighted imaging appear unremarkable. The midline structures appear unremarkab le. The soft tissues are unremarkable. The visualized paranasal sinuses and mastoid air cells are c lear. IMPRESSION: 1. Mild to moderate cerebral volume loss and white matter disease likely reflecting chronic microva scular ischemic changes. No evidence of acute infarction or other acute intracranial abnormality. Reported By:
--- NOTE | 2016-09-03 12:16 | MRI ---
HISTORY: Altered mental status, ataxia, dizziness Study: MRA head without contrast Comparison: MRI brain same day Technique: 3-D [id number] imaging of the intracranial circulation was performed. Findings: Normal flow is seen in the anterior circulation. The internal carotid artery, M1 segment, and A1 se gments do not demonstrate significant stenosis. No evidence of aneurysm or vascular malformation. N ormal flow is seen in the posterior circulation. The vertebrobasilar system is normal in its appeara nce. IMPRESSION: 1. Normal MRA of the brain. Reported By:
--- NOTE | 2016-09-03 14:04 | DR.H&P ---
H&P - History & Physical for Day of: H&P Date: 09/02/16 - Chief Complaint Chief Complaint: ATAXIC, DIZZINESS - Allergies Allergies/Adverse Reactions: Allergies Allergy/AdvReac Type Severity Reaction Status Date / Time No Known Drug Allergy Allergy Verified 09/02/16 16:25 - History of Present Illness History of Present Illness: THIS IS AN 85 YEAR OLD MALE, WHO IS A PATIENT OF OURS. HE PRESENTS TO THE EMERGENCY ROOM WITH COMPLAINTS OF ATAXIA AND DIZZINESS. HE REPORTS A SLIGHT HEADACHE, NO FEVER. PATIENT REPORTS FREQUENT FALLING AND HITTING HIS HEAD AT HOME. PATIENT STATES HIS HEAD DOESN'T FEEL "RIGHT". HE REPORTS GENERALIZED WEAKNESS, DIZZINESS, CONFUSION, ATAXIA, AND FREQUENT FALLS FOR SEVERAL DAYS. UPON ARRIVAL TO ER, PATIENT IS NOTED WITH CONFUSION AND ALTERED MENTAL STATUS. LABS AND CT OBTAINED. CBC WNL EXCEPT: H/ H 10.0/30.3. CMP WNL EXCEPT: CHL 108, BUN/CREAT 33/3.26, GFR 19, CALCIUM 7.6, ALBUMIN 2.4. CARDIAC ENZYMES WNL EXCEPT: CREAT KINASE 351, CKMB 6.7. URINALYSIS WNL. CT BRAIN WITHOUT CONTRAST REPORTS: NO ACUTE INTRACRANIAL PROCESS; AGE-RELATED ATROPHY; SMALL-VESSEL DISEASE. WE WILL ADMIT PATIENT FOR FURTHER TREATMENT AND EVALUATION. WE WILL START PATIENT ON IV FLUIDS. - Past Medical History Past Medical History: Hypertension Additional Medical History: BPH - Past Surgical History Surgical History: Other Additional Surgical History: Stent due to prostate - Family History Family Medical History: Hypertension - Social History Does patient currently use any type of tobacco product: No Have you used tobacco products in the last 12 months: No Type of Tobacco Use: None Does any household member use tobacco: No Alcohol Use: None Drug Use: None - Medications Home Medications: Finasteride [PROSCAR 5 MG *] 5 mg PO DAILY 08/10/16 Terazosin HCl [HYTRIN 5 MG (GENERIC) *] 5 mg PO .EVENING 08/10/16 Amlodipine Besylate [NORVASC 5 MG *] 1 tab PO DAILY 08/11/16 Famotidine [PEPCID TAB 20 MG *] 20 mg PO BID #60 tab 08/12/16 Pantoprazole Sodium 40 mg [PROTONIX 40 MG *] 40 mg PO BID #60 tab 08/12/16 - Review of Systems Constitutional: Weakness, Malaise Eyes: No Symptoms Reported. denies: Pain, Vision Change, Conjunctivae Inflammation, Eyelid Inflammation, Redness ENT: No Symptoms Reported. denies: Ear Pain, Ear Discharge, Nose Pain, Nose Discharge, Nose Congestion, Mouth Pain, Mouth Swelling, Throat Pain, Throat Swelling Respiratory: No Symptoms Reported. denies: Cough, Shortness of Breath, Hemoptysis, SOB with Excertion, Pleuritic Pain, Sputum, Wheezing Cardiovascular: Light Headedness. denies: Chest Pain, Palpitations, Orthopnea, Paroxysmal Noc. Dyspnea Gastrointestinal: No Symptoms Reported. denies: Nausea, Vomiting, Abdominal Pain, Diarrhea, Constipation, Melena, Hematochezia Genitourinary: No Symptoms Reported. denies: Dysuria, Frequency, Incontinence, Hematuria, Retention Musculoskeletal: Other (Generalized Muscle Weakness). denies: Shoulder Pain, Arm Pain, Back Pain, Hand Pain, Leg Pain, Foot Pain, Neck Pain Skin: No Symptoms Reported. denies: Rash, Lesions, Jaundice, Bruising, Wound, Ecchymosis Neurological: No Symptoms Reported. denies: Weakness, Numbness, Incoordination , Change in Speech, Confusion, Seizures - Physical Exam Vital Signs: Temperature 98.1 F Pulse Rate [Right Brachial] 72 Respiratory Rate 18 Blood Pressure [Right Arm] 123/61 O2 Sat by Pulse Oximetry 2 Oriented: Person Eyes: Normal. negative: Blurred Vision, Diplopia, Discharge, Pain, Redness, Photophobia Ear: Normal. negative: Swelling, Ecchymosis, Hemotypanum, Abrasion, Laceration Nose: Normal. negative: Injected, Discharge, Blood Throat: Dry. negative: Tonsillar Hypertrophy, Exudate Respiratory: Clear Throughout Cardiovascular: Normal. negative: Murmur, Edema : Normal. negative: Dysuria, Hematuria, Frequency, Discharge, Testicular Pain Auscultation: Bowel Sounds: Decreased. negative: Bruit Palpation: Normal. negative: Spleen Enlarged, Liver Enlarged, Mass Pulsatile Tenderness: Normal. negative: Rebound, Guarding, Rigidity Skin: Decreased Turgur. negative: Diaphoresis, Wound, Bruising, Ecchymosis Musculoskeletal: Instability Psychiatric: Other (Confusion) Mood Description: Calm Speech Pattern: Clear, Inappropriate - Assessment/Plan (1) Altered mental status Qualifiers: Altered mental status type: transient alteration of awareness Coma depth: C Coma timing: C Qualified Code(s): R40.4 - Transient alteration of awareness Status: Acute Plan: ADMIT PATIENT, START IV FLUIDS, CONTINUE TO MONITOR. (2) Ataxia Status: Acute Plan: ABOVE. (3) Dehydration Status: Acute Plan: START IV FLUIDS, MONITOR LABS. (4) Frequent falls Status: Acute Plan: CONTINUE TO MONITOR. (5) Weakness generalized Status: Acute (6) BPH (benign prostatic hypertrophy) Qualifiers: Prostatic enlargement morphology: non-nodular Lower urinary tract symptom presence: symptoms absent Qualified Code(s): N40.0 - Benign prostatic hyperplasia without lower urinary tract symptoms Status: Chronic (7) HTN (hypertension) Qualifiers: Hypertension type: essential hypertension Qualified Code(s): I10 - Essential (primary) hypertension Status: Chronic
--- NOTE | 2016-09-03 14:24 | PCM.PROG ---
Progress Note - Progress Note for Day of Date: 09/03/16 - Subjective Subjective: PATIENT CONTINUES WITH CONFUSION THIS MORNING. HE STATES AGAIN THAT HIS HEAD DOESN'T FEEL "RIGHT". AN MRI OF BRAIN IS SCHEDULED FOR THIS MORNING. PATIENT REPORTS A POOR APPETITE. CBC WNL EXCEPT: H/H 9.4/28.3. CMP WNL EXCEPT: CHL 108, BUN/CREAT 33/2.95, GFR 26, CALCIUM 7.5, TOT PROTEIN 5.8, ALBUMIN 2.1. CARDIAC ENZYMES WNL EXCEPT: CREAT KINASE 357, CKMB 7.5. EKG: SINUS RHYTHM, RATE 79. WE WILL START ALBUMIN IV, CONTINUE TO MONITOR NEURO STATUS, AND FOLLOW UP IN AM WITH LABS. - Past Medical Family Social History Past Med/Fam/Surg Hx: No changes since H&P Allergies: Allergies No Known Drug Allergy Allergy (Verified 09/02/16 16:25) - Review of Systems ROS: No change since H&P - Vital Signs and I&O's Vital Signs: Temperature 98.1 F Pulse Rate [Right Brachial] 72 Respiratory Rate 18 Blood Pressure [Right Arm] 123/61 O2 Sat by Pulse Oximetry 2 Intake and Output: Intake & Output 09/01/16 09/02/16 09/03/16 09/04/16 11:59 11:59 11:59 11:59 Intake Total 700 Balance 700 - Physical Exam Oriented: Person Eyes: Normal. negative: Blurred Vision, Diplopia, Discharge, Pain, Redness, Photophobia Ear: Normal. negative: Swelling, Ecchymosis, Hemotypanum, Abrasion, Laceration Nose: Normal. negative: Injected, Discharge, Blood Throat: Dry. negative: Tonsillar Hypertrophy, Exudate Respiratory: Normal Cardiovascular: Normal. negative: Murmur, Edema : Normal. negative: Dysuria, Hematuria, Frequency, Discharge, Testicular Pain Auscultation: Bowel Sounds: Decreased. negative: Bruit Palpation: Normal. negative: Spleen Enlarged, Liver Enlarged, Mass Pulsatile Tenderness: Normal. negative: Rebound, Guarding, Rigidity Skin: Decreased Turgur. negative: Diaphoresis, Wound, Bruising, Ecchymosis Musculoskeletal: Instability Psychiatric: Other (Confusion) Mood Description: Calm Speech Pattern: Clear, Inappropriate - Laboratory and Diagnostics Result Diagrams: 09/03/16 05:41 09/03/16 05:41 Labs: Laboratory WBC 4.4 X10^3/uL (3.6-10.0) 09/03/16 05:41 RBC 3.31 X10^6/uL (4.7-6.0) L 09/03/16 05:41 Hgb 9.4 g/dL (13.5-18.0) L 09/03/16 05:41 Hct 28.3 % (42.0-54.0) L 09/03/16 05:41 MCV 85.7 fL (80.0-100.0) 09/03/16 05:41 MCH 28.5 pg (27.0-34.0) 09/03/16 05:41 MCHC 33.3 g/dL (33.0-35.0) 09/03/16 05:41 RDW 15.1 % (11.6-16.5) 09/03/16 05:41 Plt Count 165 X10^3/uL (150.0-450.0) 09/03/16 05:41 MPV 8.3 fL (7.4-11.0) 09/03/16 05:41 Neut % 65.4 % (42.0-75.0) 09/03/16 05:41 Lymph % 20.0 % (21.0-51.0) L 09/03/16 05:41 [place] % 9.1 % (0.0-13.0) 09/03/16 05:41 Eos % 2.7 % (0.9-2.9) 09/03/16 05:41 Baso % 2.8 % (0.2-1.0) H 09/03/16 05:41 Neut # 2.9 x10^3/uL (2.2-4.8) 09/03/16 05:41 Lymph # 0.9 X10^3/uL (1.3-2.9) L 09/03/16 05:41 [place] # 0.4 x10^3/uL (0.3-0.8) 09/03/16 05:41 Eos # 0.1 x10^3/uL (0.0-0.2) 09/03/16 05:41 Baso # 0.1 X10^3/uL (0.0-0.1) 09/03/16 05:41 Absolute Nucleated RBC 0.0 /100WBC 09/03/16 05:41 Sodium 139 mmol/L (136-145) 09/03/16 05:41 Corrected Sodium TNP 09/03/16 05:41 Potassium 5.0 mmol/L (3.5-5.1) 09/03/16 05:41 Chloride 108 mmol/L (98-107) H 09/03/16 05:41 Carbon Dioxide 21.3 mmol/L (21-32) 09/03/16 05:41 BUN 33 mg/dL (7-18) H 09/03/16 05:41 Creatinine 2.95 mg/dL (0.70-1.30) H 09/03/16 05:41 Est GFR (MDRD) Af Amer 26 (>60) L 09/03/16 05:41 Est GFR (MDRD) Non-Af 22 (>60) L 09/03/16 05:41 Glucose 88 mg/dL (65-99) 09/03/16 05:41 Calcium 7.5 mg/dL (8.5-10.1) L 09/03/16 05:41 Corrected Calcium 9.0 mg/dL (8.5-10.1) 09/03/16 05:41 Total Bilirubin 0.50 mg/dL (0.2-1.0) 09/03/16 05:41 AST 20 Units/L (15-37) 09/03/16 05:41 ALT 14 Units/L (12-78) 09/03/16 05:41 Alkaline Phosphatase 65 Units/L (46-116) 09/03/16 05:41 Creatine Kinase 329 Units/L (39-308) H 09/03/16 05:41 CK-MB (CK-2) 7.3 ng/mL (0-4.0) H* 09/03/16 05:41 CK/CKMB % Calc 2.2 % (<4) 09/03/16 05:41 Troponin I 0.02 ng/mL (0-1.5) 09/03/16 05:41 Total Protein 5.8 g/dL (6.4-8.2) L 09/03/16 05:41 Albumin 2.1 g/dL (3.4-5.0) L 09/03/16 05:41 Globulin 3.7 g/dL (2.5-4.5) 09/03/16 05:41 Albumin/Globulin Ratio 0.6 Ratio (1.1-2.1) L 09/03/16 05:41 Triglycerides 69 mg/dL (0-150) 09/03/16 05:41 Cholesterol 120 mg/dL (0-200) 09/03/16 05:41 LDL Cholesterol, Calc 71 mg/dL (0-100) 09/03/16 05:41 HDL Cholesterol 35 mg/dL (40-60) L 09/03/16 05:41 Cholesterol/HDL Ratio 3.4 (0.0-5.0) 09/03/16 05:41 Specimen Type Clean catch urine 09/02/16 17:21 Urine Color Yellow (YELLOW) 09/02/16 17:21 Urine Appearance Slightly hazy (CLEAR) 09/02/16 17:21 Urine pH 5.0 (5.0 - 8.0) 09/02/16 17:21 Ur Specific [place] 1.015 (1.000-1.030) 09/02/16 17:21 Urine Protein 3+ (NEGATIVE) 09/02/16 17:21 Urine Glucose (UA) Negative (NEGATIVE) 09/02/16 17:21 Urine Ketones Negative (NEGATIVE) 09/02/16 17:21 Urine Occult Blood 3+ (NEGATIVE) 09/02/16 17:21 Urine Nitrite Negative (NEGATIVE) 09/02/16 17:21 Urine Bilirubin Negative (NEGATIVE) 09/02/16 17:21 Urine Urobilinogen Normal (NORMAL) 09/02/16 17:21 Ur Leukocyte Esterase 1+ (NEGATIVE) 09/02/16 17:21 Urine RBC 3-5 /HPF (NEGATIVE) 09/02/16 17:21 Urine WBC 0-3 /HPF (NEGATIVE) 09/02/16 17:21 Ur Squamous Epith Cells Few /HPF (NEGATIVE) 09/02/16 17:21 Ur Renal Epithelial Cell Few /HPF (NEGATIVE) 09/02/16 17:21 Amorphous Sediment Trace /HPF (NEGATIVE) 09/02/16 17:21 Urine Bacteria Trace /HPF (NEGATIVE) 09/02/16 17:21 Granular Casts Few /LPF (NEGATIVE) 09/02/16 17:21 Ur Culture Indicated? No/not indicated 09/02/16 17:21 - Plan (1) Altered mental status Status: Acute Qualifiers: Altered mental status type: transient alteration of awareness Coma depth: C Coma timing: C Qualified Code(s): R40.4 - Transient alteration of awareness Plan: CONITNUE IV FLUIDS, CONTINUE TO MONITOR. (2) Hypoalbuminemia Status: Acute Plan: START ALBUMIN IV, MONITOR LABS. (3) Hypocalcemia Status: Acute Plan: CONTINUE TO MONITOR. (4) Ataxia Status: Acute Plan: ABOVE. (5) Dehydration Status: Acute Plan: CONTINUE IV FLUIDS, MONITOR LABS. (6) Frequent falls Status: Acute Plan: CONTINUE TO MONITOR. (7) Weakness generalized Status: Acute (8) BPH (benign prostatic hypertrophy) Status: Chronic Qualifiers: Prostatic enlargement morphology: non-nodular Lower urinary tract symptom presence: symptoms absent Qualified Code(s): N40.0 - Benign prostatic hyperplasia without lower urinary tract symptoms (9) HTN (hypertension) Status: Chronic Qualifiers: Hypertension type: essential hypertension Qualified Code(s): I10 - Essential (primary) hypertension
[2016-09-04 05:16] LABS: ALANINE AMINOTRANSFERASE 12 Units/L (12-78); ALBUMIN 2.3 g/dL (3.4-5.0); ALKALINE PHOSPHATASE 64 Units/L (46-116); ASPARTATE AMINO TRANSFERASE 19 Units/L (15-37); BLOOD UREA NITROGEN 30 mg/dL (7-18); CALCIUM 7.5 mg/dL (8.5-10.1); CARBON DIOXIDE 21.1 mmol/L (21-32); CHLORIDE 108 mmol/L (98-107); COR CA(FOR HYPOALB) 8.9 mg/dL (8.5-10.1); CREATININE 2.76 mg/dL (0.70-1.30); GLUCOSE 87 mg/dL (65-99); SODIUM 140 mmol/L (136-145); TOTAL PROTEIN 5.8 g/dL (6.4-8.2); eGFR BLACK RACES 28 (>60); eGFR NON BLACK RACES 23 (>60)
[2016-09-04 05:45] LABS: BASOPHILS # (AUTO) 0.1 X10^3/uL (0.0-0.1); BASOPHILS % (AUTO) 2.2 % (0.2-1.0); EOSINOPHILS # (AUTO) 0.2 x10^3/uL (0.0-0.2); EOSINOPHILS % (AUTO) 3.1 % (0.9-2.9); HEMATOCRIT 28.4 % (42.0-54.0); HEMOGLOBIN 9.4 g/dL (13.5-18.0); LYMPHOCYTES # (AUTO) 0.9 X10^3/uL (1.3-2.9); LYMPHOCYTES % (AUTO) 19.2 % (21.0-51.0); MEAN CORPUSCULAR HEMOGLOBIN 28.8 pg (27.0-34.0); MEAN CORPUSCULAR HGB CONC 32.9 g/dL (33.0-35.0); MEAN CORPUSCULAR VOLUME 87.4 fL (80.0-100.0); MEAN PLATELET VOLUME 8.8 fL (7.4-11.0); MONOCYTES # (AUTO) 0.4 x10^3/uL (0.3-0.8); MONOCYTES % (AUTO) 8.9 % (0.0-13.0); NEUTROPHILS # (AUTO) 3.2 x10^3/uL (2.2-4.8); NEUTROPHILS % (AUTO) 66.6 % (42.0-75.0); PLATELET COUNT 163 X10^3/uL (150.0-450.0); RED BLOOD COUNT 3.25 X10^6/uL (4.7-6.0); WHITE BLOOD COUNT 4.8 X10^3/uL (3.6-10.0)
[2016-09-04] MEDS: NORVASC TAB 5 MG PO SCH (09:00)
[2016-09-04] MEDS: PROTONIX TAB 40 MG PO SCH (09:00)
[2016-09-04] MEDS: PROSCAR PO SCH (09:00)
[2016-09-04] MEDS: PEPCID TAB 20 MG PO SCH (09:00)
[2016-09-04] MEDS ORDERED: PHARMACY CONSULT - DOSE _____ XX SCH (10:00)
[2016-09-04 12:21] VITALS: BP 159/75
[2016-09-04] MEDS: ALBUMIN HUMAN 25%- 100ML 100 ML IV SCH (12:24)
[2016-09-04] MEDS: NS 1000 ML 1,000 ML IV SCH (12:25)
[2016-09-04] MEDS ORDERED: MEGACE PO SCH (17:00)
[2016-09-05] MEDS ORDERED: PEPCID TAB 20 MG PO SCH (09:00)
== END 2016-09-04 13:05 | disposition home or self-care (01) ==
LOC: ER 16:28 → OBS 20:02 → MED/SURG 09-03 14:25
PROVIDERS: ADMIT Internal Medicine; ATTEND Internal Medicine
DX: R41.82 Altered mental status, unspecified (principal); E86.0 Dehydration; R29.6 Repeated falls; R27.0 Ataxia, unspecified; R26.89 Other abnormalities of gait and mobility; R53.1 Weakness; R42 Dizziness and giddiness; R51 Headache; N40.0 Benign prostatic hyperplasia without lower urinary tract symptoms; I10 Essential (primary) hypertension; E83.51 Hypocalcemia; E88.09 Other disorders of plasma-protein metabolism, not elsewhere classified; D64.89 Other specified anemias
CPT/HCPCS: 36415; 70450; 70544; 70551; 71010; 80053; 80061; 81001; 82550; 82553; 84484; 85025; 93005; 93010; 94760; 96365; 97535; 99284; A4222; G8987; G8988; P9047; S0138; G0378